=== PATIENT | female | born 1985 | race Hispanic/Latino ===

== ENCOUNTER 2020-09-23 15:38 | Observation (INO) | payer MEDICAID ==
[~2020-09-23] VITALS: Ht 180.3 cm; Wt 128.4 kg
[2020-09-23] MEDS ORDERED: LACTATED RINGERS 1000ML IV PRN (16:00)
[2020-09-23 16:13] LABS: APPEARANCE,URINE Cloudy (CLEAR); BILIRUBIN,URINE Small (NEGATIVE); COLOR,URINE Dark Yellow (YELLOW); GLUCOSE, URINE (UA) Negative (NEGATIVE); KETONES,URINE >=80 mg/dL (NEGATIVE); LEUKOCYTE ESTERASE ,URINE Trace (NEGATIVE); NITRATE,URINE Negative (NEGATIVE); OCCULT BLOOD,URINE Negative (NEGATIVE); PROTEIN,URINE Negative (NEGATIVE)
[2020-09-23 16:20] LABS: AMPHET/METH SCREEN,URINE NEGATIVE (NEGATIVE); BARBITURATE SCREEN, URINE NEGATIVE (NEGATIVE); BENZODIAZEPINES SCREEN,URINE NEGATIVE (NEGATIVE); CANNABINOID SCREEN,URINE NEGATIVE (NEGATIVE); COCAINE SCREEN,URINE NEGATIVE (NEGATIVE); OPIATE SCREEN,URINE NEGATIVE (NEGATIVE); PHENCYCLIDINE SCREEN,URINE NEGATIVE (NEGATIVE)
[2020-09-23 16:26] LABS: AMORPHOUS SEDIMENT,UR Many /LPF (None Seen); BACTERIA,URINE Few /HPF (None Seen); MUCUS,URINE Few LPF (None Seen); RBC,URINE 0-1 /HPF (0-1); SQUAMOUS EPITHELIAL CELL,UR Few /HPF (0-2)
[2020-09-23 16:29] VITALS: BP 132/76
[2020-09-23] MEDS ORDERED: CITRIC ACID/SODIUM CITRATE 30 ML UDCUP PO SCH (16:45)
[2020-09-24] MEDS ORDERED: OMEP20TA25 PO (15:23)
[2020-09-24] MEDS ORDERED: PANT40GR PO (15:23)
== END 2020-09-23 17:46 | disposition home or self-care (01) ==
LOC: EDH 15:38 → LDH 15:39
PROVIDERS: ADMIT Specialist; ATTEND Specialist
DX: O62.9 Abnormality of forces of labor, unspecified (principal); Z3A.34 34 weeks gestation of pregnancy
CPT/HCPCS: 59025; 80305; 81001; 96360; 99284; G0378 ×2; J7120 ×2

== ENCOUNTER 2020-10-17 06:06 | Inpatient (IN) | payer MEDICAID ==
[~2020-10-17] VITALS: Ht 170.2 cm; Wt 127.9 kg
[~2020-10-17 06:06] MED LIST: OMEP20TA25 PO; PANT40GR PO
[2020-10-17] MEDS ORDERED: EPHEDRINE SULFATE 50 MG/ML AMPULE IVP PRN (06:30)
[2020-10-17] MEDS ORDERED: NALOXONE HCL 0.4 MG/1 ML ML IV PRN (06:30)
[2020-10-17] MEDS ORDERED: ROPIVACAINE 0.2% 100ML VIAL 100 ML EP PRN (06:30)
[2020-10-17] MEDS ORDERED: LACTATED RINGERS 1000ML 1,000 ML IV PRN (06:30)
[2020-10-17] MEDS ORDERED: LACTATED RINGERS 500 ML 500 ML IV PRN (06:30)
[2020-10-17] MEDS ORDERED: MEPERIDINE-PF 50 MG/ML SYG IVP PRN (06:30)
[2020-10-17] MEDS ORDERED: PROMETHAZINE HCL 25 MG/ML 1ML AMPULE IM PRN (06:30)
[2020-10-17 06:36] VITALS: BP 120/78
[2020-10-17 07:12] LABS: MEAN CORPUSCULAR HEMOGLOBIN 27.8 pg (27.0-33.0); MEAN CORPUSCULAR HGB CONC 32.8 g/dL (32.0-36.0); MEAN CORPUSCULAR VOLUME 84.9 fL (79-99); RED BLOOD CELL COUNT(AUTO) 4.24 MIL/uL (4.00-5.50); RED CELL DISTRIBUTION WIDTH 12.7 % (11.0-15.5)
[2020-10-17 07:16] LABS: BILIRUBIN,URINE Negative (NEGATIVE); COLOR,URINE Yellow (YELLOW); GLUCOSE, URINE (UA) Negative (NEGATIVE); KETONES,URINE Negative (NEGATIVE); LEUKOCYTE ESTERASE ,URINE Trace (NEGATIVE); NITRATE,URINE Negative (NEGATIVE); OCCULT BLOOD,URINE Negative (NEGATIVE); PH,URINE 6.5 (5.0-8.0); PROTEIN,URINE Negative (NEGATIVE)
[2020-10-17] MEDS ORDERED: OXYTOCIN-LR 20 UNITS/1000 ML 1,000 ML IV ONE (07:17)
[2020-10-17] MEDS ORDERED: PREN1TAB80 PO (07:20)
[2020-10-17] MEDS ORDERED: OMEP20CA12 PO (07:21)
[2020-10-17] MEDS ORDERED: OXYTOCIN-LR 20 UNITS/1000 ML 1,000 ML IV SCH (07:30)
[2020-10-17 07:58] LABS: APPEARANCE,URINE CLEAR (CLEAR)
[2020-10-17 08:06] LABS: BACTERIA,URINE Rare /HPF (None Seen); RBC,URINE None Seen /HPF (0-1); WBC,URINE 0-1 /HPF (0-1)
[2020-10-17] MEDS ORDERED: FENTANYL CITRATE PF 50 MCG/1 ML 2ML VIAL ONE (13:27)
[2020-10-17] MEDS ORDERED: ACETAMINOPHEN-CODEINE 300/30MG TAB PO PRN (16:15)
[2020-10-17] MEDS ORDERED: DIPH,PERTUSS(ACELL),TET VAC/PF 0.5 ML VIAL IM PRN (16:15)
[2020-10-17] MEDS ORDERED: WITCH HAZEL 1 PAD TP PRN (16:15)
[2020-10-17] MEDS ORDERED: MEASLES/MUMPS/RUBELLA VACCINE, LIVE 0.5 ML/VIAL SQ PRN (16:15)
[2020-10-17] MEDS ORDERED: BENZOCAINE/LANOLIN/ALOE VERA 60 ML AEROSOL TP PRN (16:15)
[2020-10-17] MEDS ORDERED: LANOLIN 30GM OINTMENT TP PRN (16:15)
[2020-10-17] MEDS ORDERED: ACETAMINOPHEN 325 MG TAB PO PRN (16:15)
[2020-10-17] MEDS: OXYTOCIN-LR 20 UNITS/1000 ML 1,000 ML IV SCH (16:45)
[2020-10-17] MEDS: IBUPROFEN 600 MG TABLET PO PRN (18:44)
[2020-10-17 19:27] VITALS: BP 120/66
[2020-10-17 20:01] VITALS: BP 135/75
[2020-10-17] MEDS: DOCUSATE SODIUM 100 MG CAP PO SCH (20:38)
[2020-10-17 23:31] VITALS: BP 120/59
[2020-10-18] MEDS: IBUPROFEN 600 MG TABLET PO PRN ×2 (01:23→08:55)
[2020-10-18 03:46] VITALS: BP 111/70
[2020-10-18 06:20] VITALS: BP 126/76
[2020-10-18 06:23] VITALS: BP 107/59
[2020-10-18] MEDS: OXYTOCIN-LR 20 UNITS/1000 ML 1,000 ML IV SCH (06:30)
[2020-10-18 08:07] LABS: RAPID PLASMA REAGIN NONREACTIVE (NONREACTIVE)
[2020-10-18 08:18] LABS: HEPATITIS Bs ANTIGEN SCREEN P Negative (Negative)
[2020-10-18] MEDS: DOCUSATE SODIUM 100 MG CAP PO SCH (08:53)
[2020-10-18 11:12] VITALS: BP 123/75
[2020-10-18 16:01] VITALS: BP 126/75
== END 2020-10-18 16:40 | disposition home or self-care (01) | DRG 560 ==
LOC: LDH 06:06 → WSH 19:55
PROVIDERS: ADMIT Specialist; ATTEND Specialist
PROC: 10E0XZZ Delivery of Products of Conception, External Approach (ICD-10-PCS; principal; 2020-10-17)
PROC: 3E0234Z Introduction of Serum, Toxoid and Vaccine into Muscle, Percutaneous Approach (ICD-10-PCS; 2020-10-17)
PROC: 3E0134Z Introduction of Serum, Toxoid and Vaccine into Subcutaneous Tissue, Percutaneous Approach (ICD-10-PCS; 2020-10-17)
PROC: 3E0R3BZ Introduction of Anesthetic Agent into Spinal Canal, Percutaneous Approach (ICD-10-PCS; 2020-10-17)
PROC: 00HU33Z Insertion of Infusion Device into Spinal Canal, Percutaneous Approach (ICD-10-PCS; 2020-10-17)
DX: O99.62 Diseases of the digestive system complicating childbirth (principal); O99.214 Obesity complicating childbirth; E66.01 Morbid (severe) obesity due to excess calories; K21.9 Gastro-esophageal reflux disease without esophagitis; Z3A.38 38 weeks gestation of pregnancy; Z37.0 Single live birth; Z23 Encounter for immunization; Z98.84 Bariatric surgery status
CPT/HCPCS: 36415; 81001; 85027; 86592; 86701; 86850; 86900; 86901; 87340; 87390; 90715; G0378; J2590; J2795; J3010; J7120